=== PATIENT | male | born 1975 | race American Indian/Alaskan Native ===

== ENCOUNTER 2016-11-06 19:56 | Inpatient (IN) | payer MEDICAID, OTHER ==
--- NOTE | 2016-11-06 20:24 | C.PDOC ---
History Of Present Illness 41 year old male who presents to the ER with a complaint of right lower back pain for the past few days. Patient admits to ETOH intake tonight; denies dysuria, hematuria, or incontinence. Chief Complaint (Nursing): Substance Abuse History Per: Patient History/Exam Limitations: no limitations Onset/Duration Of Symptoms: Days Current Symptoms Are (Timing): Still Present Suicide/Self Injury Attempted (Context): None Modifying Factor(s): Alcohol Associated Symptoms: denies: Depression, Suicidal Thoughts, Suicidal Plan Recent travel outside of the [place]: No Past Medical History Reviewed: Historical Data, Nursing Documentation, Vital Signs Vital Signs: Last Vital Signs Temp 98 F 11/06/16 20:03 Pulse 104 H 11/06/16 20:03 Resp 20 11/06/16 20:03 BP 132/87 11/06/16 20:03 Pulse Ox 100 11/06/16 20:28 - Medical History PMH: Depression Surgical History: No Surg Hx Family History: States: Unknown Family Hx - Social History Hx Alcohol Use: Yes Hx Substance Use: No - Immunization History Hx Tetanus Toxoid Vaccination: No Hx Influenza Vaccination: Yes Hx Pneumococcal Vaccination: No Review Of Systems Constitutional: Negative for: Fever, Chills Genitourinary: Negative for: Dysuria, Incontinence, Hematuria Musculoskeletal: Positive for: Back Pain Neurological: Negative for: Weakness, Numbness Physical Exam - Physical Exam Appears: Non-toxic, No Acute Distress, Other (ETOH on breath, Alert, Conscious) Skin: Normal Color, Warm, Dry Head: Atraumatic, Normacephalic Oral Mucosa: Moist Chest: Symmetrical, No Tenderness Cardiovascular: Rhythm Regular, No Murmur Respiratory: Normal Breath Sounds, No Rales, No Rhonchi, No Wheezing Gastrointestinal/Abdominal: Soft, No Tenderness Back: CVA Tenderness (Mild right), No Vertebral Tenderness Neurological/Psych: Oriented x3, Normal Speech, Normal Cognition ED Course And Treatment - Laboratory Results Result Diagrams: 11/06/16 20:31 11/06/16 20:31 O2 Sat by Pulse Oximetry: 100 (Room air) Pulse Ox Interpretation: Normal Progress Note: Blood work and urinalysis ordered. Disposition Discussed With : Edy Garcia Doctor Will See Patient In The: Hospital Counseled Patient/Family Regarding: Diagnosis - Disposition Disposition: HOSPITALIZED Disposition Time: 01:15 Condition: STABLE - POA Present On Arrival: None - Clinical Impression Clinical Impression: Disorder due to alcohol abuse - Scribe Statement The provider has reviewed the documentation as recorded by the Scribnisha Salazar All medical record entries made by the Scribe were at my direction and personally dictated by me. I have reviewed the chart and agree that the record accurately reflects my personal performance of the history, physical exam, medical decision making, and the department course for this patient. I have also personally directed, reviewed, and agree with the discharge instructions and disposition.
[2016-11-06 20:37] LABS: RBC URINE < 1 /hpf (0-3); URINE BILIRUBIN NEGATIVE (NEGATIVE); URINE BLOOD NEGATIVE (NEGATIVE); URINE COLOR Colorless (YELLOW); URINE GLUCOSE (UA) NORMAL (Normal); URINE KETONE NEGATIVE (NEGATIVE); URINE LEUKOCYTE ESTERASE NEG Leu/uL (Negative); URINE PROTEIN NEGATIVE (NEGATIVE); URINE UROBILINOGEN NORMAL mg/dL (0.2-1.0)
[2016-11-06 20:45] LABS: CHLORIDE 101 mmol/L (98-107); POTASSIUM 3.9 mmol/L (3.6-5.2); SODIUM 140 mmol/L (132-148)
[2016-11-06 20:47] LABS: ALB/GLOB RATIO 1.1 (1.0-2.1); AST/SGOT 37 U/L (17-59); BILIRUBIN,TOTAL 0.6 mg/dL (0.2-1.3); CARBON DIOXIDE 22 mmol/L (22-30); GFR AFRICAN-AMERICAN > 60; TOTAL PROTEIN 8.3 g/dL (6.3-8.3)
[2016-11-06 20:48] LABS: ALKALINE PHOSPHATASE 75 U/L (38-126); ALT/SGPT 32 U/L (21-72); BLOOD UREA NITROGEN 11 mg/dL (9-20); GLUCOSE,RANDOM 84 mg/dL (75-110)
[2016-11-06 20:49] LABS: ALCOHOL SERUM 260 mg/dl (0-10)
[2016-11-06 20:50] LABS: BASO % 0.9 % (0.0-2.0); EOS # 0.1 K/uL (0.0-0.7); EOS % 1.1 % (0.0-4.0); HEMATOCRIT 36.6 % (35.0-51.0); LYMPH # 1.6 K/uL (1.0-4.3); LYMPH % 33.4 % (20.0-40.0); MEAN CELL VOLUME 93.2 fL (80.0-94.0); MEAN CORPUSCULAR HEMOGLOBIN 31.6 pg (27.0-31.0); MEAN CORPUSCULAR HGB CONC 33.8 g/dL (33.0-37.0); MEAN PLATELET VOLUME 7.4 fL (7.2-11.7); MONO # 0.6 K/uL (0.0-0.8); MONO % 11.3 % (0.0-10.0); RED CELL DISTRIBUTION WIDTH 13.6 % (11.5-14.5); WHITE BLOOD COUNT 4.9 K/uL (4.8-10.8)
[2016-11-07] MEDS ORDERED: Aluminum Hydroxide/Magnesium Hydroxide Susp (30 mL) PO PRN (06:38)
--- NOTE | 2016-11-07 10:14 | PCM.PSYCH ---
Initial Psychiatric Evaluation - Initial Psychiatric Evaluation Type of Admission: Voluntary Legal Status: Capacity Current Medications: Active Medications Generic Name Dose Route Start Last Admin Trade Name Freq PRN Reason Stop Dose Admin Al Hydrox/Mg Hydrox/Simethicone 30 ml 11/07/16 06:38 Maalox 30 Ml PO TID PRN Indigestion / Heartburn Chlordiazepoxide 25 mg 11/07/16 06:38 Librium PO Q4H PRN Alcohol Withdrawal Chlordiazepoxide 25 mg 11/07/16 12:00 Librium PO 11/11/16 11:59 Q6 LAST Taper Clonidine HCl 0.1 mg 11/07/16 06:38 Catapres PO Q4H PRN Symptoms of alcohol withdrawl Hydroxyzine HCl 25 mg 11/07/16 06:38 Atarax PO Q6 PRN Anxiety Ibuprofen 600 mg 11/07/16 06:48 Motrin Tab PO Q6 PRN Pain, moderate (4-7) Loperamide HCl 2 mg 11/07/16 06:38 Imodium PO Q8 PRN Diarrhea Ondansetron HCl 4 mg 11/07/16 06:38 Zofran Tab PO Q8 PRN Nausea/Vomiting Trazodone HCl 50 mg 11/07/16 06:38 Desyrel PO HS PRN Insomnia Past Psychiatric History - Past Psychiatric History Previous Treatment History: None Pertinent Medical Hx (Current Medical&Sleep Prob, Allergies): Allergies Allergy/AdvReac Type Severity Reaction Status Date / Time No Known Allergies Allergy Verified 11/06/16 20:06 No Known Home Med [No Known Home Med] 11/08/14 Review of Systems - Review of Systems All systems: reviewed and no additional remarkable complaints except - Psychiatric Psychiatric: Anxiety, Irritability Mental Status Examination - Personal Presentation Personal Presentation: Looks stated age - Affect Affect: Constricted - Motor Activity Motor Activity: Calm - Reliability in Providing Information Reliability in Providing Information: Good - Speech Speech: Organized - Mood Mood: Anxious - Formal Thought Process Formal Thought Process: No Impairment - Cognitive Functions Orientation: Person, Place, Situation, Time Sensorium: Alert Attention/Concentration: Attentive Abstract Thinking: [place] Estimate of Intelligence: Below average Judgement: Imparied, as evidence by: Poor judgement, Imparied, as evidence by: Lack of insight into illness - Risk Risk: Withdrawal, Diminished functioning - Strength & Assets Inventory Strength & Assets Inventory: Family support
[2016-11-07] MEDS: Multiple Vitamins Tab PO SCH (14:57)
--- NOTE | 2016-11-07 16:45 | PCM.PSYCH ---
Initial Psychiatric Evaluation - Initial Psychiatric Evaluation Type of Admission: Voluntary Legal Status: Capacity Chief Complaint (in patient's own words): "I need to stop drinking." History of Present Illness and Precipitating Events: A 41 y/o male presents to the hospital with willingness to get help in alcohol detox. The patient lives with his family "on and off." He is currently unemployed and receiving support from his family, but he used to work in construction in the past. Patient reports of long history of drinking. As per patient, he drinks about 2 pints of liquor and 6-7, 24oz cans of beer daily. The maximum amount of alcohol he drank was 1L of liquor (2-4 pints) and 1 case containing 24 cans of beer. Last drink he had was 2 days ago at 5PM, where he drank 2 cans of 24 oz beer. He reports withdrawal symptoms including anxiety, irritability, headaches, and sweating, however denies any shakes and any seizures. Patient denies homicidal ideation and suicidal ideation, and denies auditory or visual hallucinations. He denies any other substance abuse. Longest period of sobriety: less than one month Past medical history: denies NKDA Past psychiatric history: Patient was in detox at [facility] () 2 weeks ago, but admits to having relpased. He denies any past history of inpatient psychiatric hospitalizations and denies any history of follow-up with any psychiatrist in the past. Patient denies suicidal ideation and homicidal ideation. Patient denies any history of auditory or visual hallucinations or any psychotic symptoms. Current Medications: Active Medications Generic Name Dose Route Start Last Admin Trade Name Freq PRN Reason Stop Dose Admin Al Hydrox/Mg Hydrox/Simethicone 30 ml 11/07/16 06:38 Maalox 30 Ml PO TID PRN Indigestion / Heartburn Chlordiazepoxide 25 mg 11/07/16 06:38 Librium PO Q4H PRN Alcohol Withdrawal Chlordiazepoxide 25 mg 11/07/16 12:00 11/07/16 14:57 Librium PO 11/11/16 11:59 25 mg Q6 LAST Administration Taper Clonidine HCl 0.1 mg 11/07/16 06:38 Catapres PO Q4H PRN Symptoms of alcohol withdrawl Folic Acid 1 mg 11/07/16 10:15 11/07/16 14:57 Folic Acid PO 1 mg DAILY LAST Administration Hydroxyzine HCl 25 mg 11/07/16 06:38 Atarax PO Q6 PRN Anxiety Ibuprofen 600 mg 11/07/16 06:48 Motrin Tab PO Q6 PRN Pain, moderate (4-7) Loperamide HCl 2 mg 11/07/16 06:38 Imodium PO Q8 PRN Diarrhea Multivitamins 1 tab 11/07/16 10:15 11/07/16 14:57 Hexavitamin PO 1 tab DAILY LAST Administration Ondansetron HCl 4 mg 11/07/16 06:38 Zofran Tab PO Q8 PRN Nausea/Vomiting Thiamine HCl 100 mg 11/07/16 10:15 11/07/16 14:56 Vitamin B1 Tab PO 100 mg DAILY LAST Administration Trazodone HCl 50 mg 11/07/16 06:38 Desyrel PO HS PRN Insomnia Past Psychiatric History - Past Psychiatric History Previous Treatment History: None Pertinent Medical Hx (Current Medical&Sleep Prob, Allergies): Allergies Allergy/AdvReac Type Severity Reaction Status Date / Time No Known Allergies Allergy Verified 11/06/16 20:06 No Known Home Med [No Known Home Med] 11/08/14 Review of Systems - Review of Systems All systems: reviewed and no additional remarkable complaints except - Psychiatric Psychiatric: Anxiety, Irritability. absent: Suicidal Ideation Mental Status Examination - Personal Presentation Personal Presentation: Looks stated age - Affect Affect: Constricted - Motor Activity Motor Activity: Calm - Reliability in Providing Information Reliability in Providing Information: Fair - Speech Speech: Organized - Mood Mood: Anxious - Formal Thought Process Formal Thought Process: No Impairment - Obsessions/Compulsions Obsessions: No Compulsions: No - Cognitive Functions Orientation: Person, Place, Situation, Time Sensorium: Alert Attention/Concentration: Attentive Abstract Thinking: Benedict Estimate of Intelligence: Below average Judgement: Imparied, as evidence by: Poor judgement, Intact, as evidence by: Insight regarding need for hospitalization - Risk Risk: Withdrawal, Diminished functioning - Strength & Assets Inventory Strength & Assets Inventory: Family support DSM 5 DX - DSM 5 DSM 5 Diagnosis: Alcohol use disorder severe Alcohol withdrawal - Recommended/Plan of Treatment Treatment Recommendations and Plan of Treatment: Alcohol use disorder severe CBT Psychoeducation Supportive therapy, individual therapy Use MT for abstinence Alcohol withdrawal CBT Psychoeducation Supportive therapy, individual therapy Librium taper when scoring Librium PRN FA/Thiamine/MVI - Smoking Cessation Smoking Cessation Initiated: No
[2016-11-08] MEDS: Multiple Vitamins Tab PO SCH (09:57)
--- NOTE | 2016-11-08 12:17 | PCM.PYCHPN ---
Psychiatric Progress Note - Psychiatric Progress Note Patient seen today, length of contact: 16 min Patient Chief Complaint: "Doing better" Problems Identified/Issues Discussed: The pt is seen, chart reviewed, case discussed with staff. The pt is compliant with medications and reports no side-effects. Symptoms are improving but needs more time to stabilize. After care discussed, support and psychoeducation given. Medication Change: Yes (detox changes daily) Medical Record Reviewed: Yes Mental Status Examination - Cognitive Function Orientation: Person, Place, Situation, Time Memory: Intact Attention: WNL Concentration: WNL Association: WNL Fund of Knowledge: WNL - Mood Mood: Anxious - Affect Affect: Constricted - Speech Speech: Appropriate - Formal Thought Process Formal Thought Process: No Impairment - Suicidal Ideation Suicidal Ideation: No - Homicidal Ideation Homicidal Ideation: No Goal/Treatment Plan - Goal/Treatment Plan Need for Continued Stay: Discharge may exacerbated symptoms, Severe functional impairment Progress Toward Problem(s) and Goals/Treatment Plan: Librium detox Gabapentin for augmentation As needed meds and vitamins Attend groups and activities [place] for abstinence and CBT for relapse prevention Support and psychoeducation Consider and encourage MAT Refer to after care Estimated Date of D/C: 11/10/16
--- NOTE | 2016-11-08 20:22 | PCM.BM ---
<Elzbieta Peguero - Last Filed: 11/08/16 20:20> Treatment Plan Problems - Problems identified on initial assessmt potiential for autonomic instability related to alcohol with drawal Date Initiated: 11/08/16 Time Initiated: 20:21 Assessment reference: NA Status: Active Treatment assets and liabiliti Patient Assests: adapts well, cooperative, motivated, ADL independent Patient Liabilities: substance abuse - Milieu Protocol Maintain good personal hygiene: daily Encourage regular showers, daily Remind patient to perform daily oral care, daily Assist patient to perform ADL's Maintain personal safety: every shift Educate patient to report safety concerns to staff, every shift Monitor environment for contraband/sharps Medication safety: Monitor for expected outcome, potential side effects: every shift, Assess barriers to learning: every shift, Assess readiness for medication education: every shift Milieu Narrative: Librium detox Gabapentin for augmentation As needed meds and vitamins Attend groups and activities [place] for abstinence and CBT for relapse prevention Support and psychoeducation Consider and encourage MAT Refer to after care Discharge/Continuing Care - Treatment Team Participation Patient/Family/SO Statement: Librium detox Gabapentin for augmentation As needed meds and vitamins Attend groups and activities [place] for abstinence and CBT for relapse prevention Support and psychoeducation Consider and encourage MAT Refer to after care <Santosh Katz - Last Filed: 11/09/16 10:19> - Diagnosis (1) Alcohol dependence Status: Acute Interventions: 11/09/16 10:19 * Assess 7x/week regarding severity of withdrawal * Educate regarding risks, benefits, side effects and alternatives of medications * Use Motivational Interviewing for abstinence * Use CBT for relapse prevention * Medication management for withdrawal symptoms * Encourage medication assisted treatment * <Cheryl De La Paz - Last Filed: 11/09/16 18:02> Family Contact Family involvement: Family/SO is involved Family contact: Patient agrees to contact, Telephone contact initiated by staff - Goals for Treatment Patient goals for treatment: Transition from detox to [facility] in [place]. Discharge/Continuing Care - Education Needs Education Needs: Patient Medication, Patient Diagnosis/Disease Process, Patient Coping Skills, Patient Anger Management skills, Patient Placement options, Patient Community resources - Discharge Discharge Criteria: No longer exhibiting s/s of withdrawal, Reduction of target symptoms Discharge to:: Substance Abuse Rehab
[2016-11-09] MEDS: Multiple Vitamins Tab PO SCH (09:54)
--- NOTE | 2016-11-09 12:28 | PCM.PYCHPN ---
Psychiatric Progress Note - Psychiatric Progress Note Patient seen today, length of contact: 15 min Patient Chief Complaint: "no complaints" Problems Identified/Issues Discussed: The pt is seen, chart reviewed, case discussed with staff. Support given, CBT and NH used briefly No new symptoms reported, improving slowly and needs more time No SEs from medications, risks discussed. After care discussed - accepted by [facility] in [place] and to start tomorrow He doesn't have insurance or money to get his meds but he says he will be ok w/ o them Medication Change: Yes (detox changes daily) Medical Record Reviewed: Yes Mental Status Examination - Cognitive Function Orientation: Person, Place, Situation, Time Memory: Intact Attention: WNL Concentration: WNL Association: WN Fund of Knowledge: WNL - Mood Mood: Anxious - Affect Affect: Constricted - Speech Speech: Appropriate - Formal Thought Process Formal Thought Process: No Impairment - Suicidal Ideation Suicidal Ideation: No - Homicidal Ideation Homicidal Ideation: No Goal/Treatment Plan - Goal/Treatment Plan Need for Continued Stay: Discharge may exacerbated symptoms, Severe functional impairment Progress Toward Problem(s) and Goals/Treatment Plan: Librium detox Gabapentin for augmentation As needed meds and vitamins Attend groups and activities [place] for abstinence and CBT for relapse prevention Support and psychoeducation Consider and encourage MAT after [facility] Estimated Date of D/C: 11/10/16
--- NOTE | 2016-11-10 08:35 | PCM.PYCHDC ---
Mental Status Examination - Mental Status Examination Orientation: Person, Place, Situation, Time Memory: Intact Mood: Anxious Affect: Constricted Speech: Appropriate Attention: WNL Association: WNL Fund of Knowledge: WNL Formal Thought Process: No Impairment Suicidal Ideation: No Current Homicidal Ideation?: No Discharge Summary - Discharge Note Reason for Hospitalization: Alcohol detox Consultations:: List each consultation separately and include: 1. Reason for request. 2. Findings. 3. Follow-up Summary of Hospital Course include:: 1. Description of specific treatment plan utilized for patients during their course of treatmen. 2. Summarize the time- course for resolution of acute symptoms and/or regressed behaviors. 3. Describe issues identified and worked on during hospitalization. 4. Describe medication utilized. 5. Describe medical problems identified and treated. 6. Reassessment of suicide risk Summary of Hospital Course: The pt was admitted and started on treatment with psychotherapy, support, psychoeducation and medications. AR and CBT used. The pt attended groups and activities, as well as milieu therapy. All the risks and benefits of medications are discussed and the patient understood and agreed. After care discussed with the patient. He went to [facility] in [place] He did not want meds due to no $ or insurance. The patient improved with the treatment provided and discharged as planned. - Final Diagnosis (DSM 5) Condition upon Discharge: STABLE DSM 5: Alcohol use disorder severe Alcohol withdrawal Disposition: HOME/ ROUTINE Follow-up Treatment Plan: No meds Follow after care plan as discussed above. Use relapse prevention skills. Return to ER or call 911 if suicidal, homicidal or symptoms relapse. Stay away from stress, alcohol and drugs. Use relaxation techniques. See primary doctor once a year and get labs. Consider MAT
[2016-11-10 08:43] VITALS: BP 121/76; PULSE 101; RESP 20; TEMP 98.4; O2SAT 99
[2016-11-10] MEDS: Multiple Vitamins Tab PO SCH (09:41)
== END 2016-11-10 10:15 | disposition home or self-care (01) | DRG 751 ==
LOC: C.ER 19:56 → C.9OBSV 11-07 00:21 → OBSVTOIN 11-07 01:14 → C.7D 11-07 01:14
PROVIDERS: ADMIT Emergency Medicine; ATTEND Psychiatry & Neurology Psychiatry
PROC: HZ2ZZZZ Detoxification Services for Substance Abuse Treatment (ICD-10-PCS; principal; 2016-11-07)
PROC: HZ42ZZZ Group Counseling for Substance Abuse Treatment, Cognitive-Behavioral (ICD-10-PCS; 2016-11-07)
PROC: HZ52ZZZ Individual Psychotherapy for Substance Abuse Treatment, Cognitive-Behavioral (ICD-10-PCS; 2016-11-07)
PROC: HZ59ZZZ Individual Psychotherapy for Substance Abuse Treatment, Supportive (ICD-10-PCS; 2016-11-07)
PROC: HZ56ZZZ Individual Psychotherapy for Substance Abuse Treatment, Psychoeducation (ICD-10-PCS; 2016-11-07)
PROC: HZ46ZZZ Group Counseling for Substance Abuse Treatment, Psychoeducation (ICD-10-PCS; 2016-11-07)
DX: F10.230 Alcohol dependence with withdrawal, uncomplicated (principal); F41.9 Anxiety disorder, unspecified; Y90.8 Blood alcohol level of 240 mg/100 ml or more; G47.00 Insomnia, unspecified

== ENCOUNTER 2018-01-05 15:26 | Emergency (ER) | payer MEDICAID, OTHER ==
[2018-01-05 15:41] VITALS: BMI 31.0
[2018-01-05 15:50] VITALS: BP 144/90; PULSE 108; RESP 18; TEMP 98.6; O2SAT 98
--- NOTE | 2018-01-05 16:57 | RAD ---
PROCEDURE: Left ankle radiographs Left foot radiographs HISTORY: fall COMPARISON: None available FINDINGS: BONES: No acute displaced fracture. Degenerative changes. Calcaneal enthesophyte/heel spur. Well corticated ossific density at the level of the talar navicular joint space likely related to degenerative change or remote trauma. JOINTS: No dislocation. SOFT TISSUES: Soft tissue swelling. No evidence of radiopaque foreign body. OTHER FINDINGS: None. IMPRESSION: Soft tissue swelling. No acute displaced fracture, dislocation, or significant joint effusion identified.If symptoms persist or if there is clinical concern, x-ray follow-up in 7-10 days should be considered. Degenerative changes.
--- NOTE | 2018-01-05 17:20 | C.PDOC ---
History Of Present Illness 42 y/o male presents to the ED for evaluation of left ankle injury. Patient states that 3 days ago he was going down stairs, missed a step, and twisted the left ankle. Now complains of worsening pain. Otherwise patient denies any numbness, tingling, focal weakness, or other complaints. Time Seen by Provider: 01/05/18 15:46 Chief Complaint (Nursing): Lower Extremity Problem/Injury History Per: Patient History/Exam Limitations: no limitations Onset/Duration Of Symptoms: Days Current Symptoms Are (Timing): Still Present Past Medical History Reviewed: Historical Data, Nursing Documentation, Vital Signs Vital Signs: Last Vital Signs Temp 98.6 F 01/05/18 15:41 Pulse 108 H 01/05/18 15:41 Resp 18 01/05/18 15:41 BP 144/90 01/05/18 15:41 Pulse Ox 98 01/05/18 15:41 - Medical History PMH: Depression Denies: Diabetes, Hepatitis, HIV, HTN, Seizures, Sexually Transmitted Disease - [facility] Procedures DETOXIFICATION SERVICES FOR SUBSTANCE ABUSE TREATMENT (11/07/16) GROUP DIRECTOR INTEGRATED FOR SUBSTANCE ABUSE TREATMENT, PSYCHOEDUCATION (11/07/16) GROUP DIRECTOR INTEGRATED FOR SUBSTANCE ABUSE, COGNITIVE BEHAVIORAL (11/07/16) INDIV PSYCHOTHERAPY FOR SUBSTANCE ABUSE TREATMENT, SUPPORT (11/07/16) INDIV PSYCHOTHERAPY FOR SUBSTANCE ABUSE, COGNITIV BEHAVIORAL (11/07/16) INDIV PSYCHOTHERAPY FOR SUBSTANCE ABUSE, PSYCHOEDUCATION (11/07/16) Family History: States: Unknown Family Hx - Social History Hx Alcohol Use: Yes Hx Substance Use: No - Immunization History Hx Tetanus Toxoid Vaccination: No Hx Influenza Vaccination: No Hx Pneumococcal Vaccination: No Review Of Systems Except As Marked, All Systems Reviewed And Found Negative. Musculoskeletal: Positive for: Foot Pain Skin: Negative for: Lesions, Bruising Neurological: Negative for: Weakness, Numbness, Incoordination Physical Exam - Physical Exam Appears: Well, Non-toxic, No Acute Distress Skin: Normal Color, Warm, Dry Head: Atraumatic, Normacephalic Eye(s): bilateral: Normal Inspection Extremity: Tenderness (to the lateral posterior area of left ankle and heel), No Calf Tenderness, Capillary Refill (less than 2 sec), No Deformity, No Swelling (or edema), Other (Achilles non-tender) Pulses: Left Dorsalis Pedis: Normal, Right Dorsalis Pedis: Normal Neurological/Psych: Oriented x3, Normal Speech, Normal Motor, Normal Sensation ED Course And Treatment O2 Sat by Pulse Oximetry: 98 (RA) Pulse Ox Interpretation: Normal - Other Rad Left ankle x-ray X-Ray: Read By Radiologist Interpretation: FINDINGS: BONES: No acute displaced fracture. Degenerative changes. Calcaneal enthesophyte/heel spur. Well corticated ossific density at the level of the talar navicular joint space likely related to degenerative change or remote trauma. JOINTS: No dislocation. SOFT TISSUES: Soft tissue swelling. No evidence of radiopaque foreign body. OTHER FINDINGS: None. IMPRESSION: Soft tissue swelling. No acute displaced fracture, dislocation, or significant joint effusion identified.If symptoms persist or if there is clinical concern, x-ray follow-up in 7-10 days should be considered. Degenerative changes. Left foot x-ray X-Ray: Read By Radiologist Interpretation: FINDINGS: BONES: No acute displaced fracture. Degenerative changes. Calcaneal enthesophyte/heel spur. Well corticated ossific density at the level of the talar navicular joint space likely related to degenerative change or remote trauma. JOINTS: No dislocation. SOFT TISSUES: Soft tissue swelling. No evidence of radiopaque foreign body. OTHER FINDINGS: None. IMPRESSION: Soft tissue swelling. No acute displaced fracture, dislocation, or significant joint effusion identified.If symptoms persist or if there is clinical concern, x-ray follow-up in 7-10 days should be considered. Degenerative changes. Progress Note: X-rays taken of left ankle and foot, read as negative. Informed patient of negative results. Patient provided with air cast, crutches, and advised to follow up with ortho. Disposition - Disposition Referrals: Durga Green MD [Staff Provider] - Disposition: HOME/ ROUTINE Disposition Time: 17:17 Condition: STABLE Additional Instructions: Follow up with PMD and Orthopedist within 1-2 days. Return to ED if feel worse. Prescriptions: Ibuprofen [Motrin Tab] 600 mg PO Q8 #30 tab Instructions: Ankle Sprain (DC) Forms: [employer] (Turkmen), Work Excuse - Clinical Impression Clinical Impression: Ankle sprain - PA / INCIDENT RESPONSE COORDINATOR / Resident Statement MD/DO has reviewed & agrees with the documentation as recorded. - Scribe Statement The provider has reviewed the documentation as recorded by the Scribe (Christine Aguiar) All medical record entries made by the Scribe were at my direction and personally dictated by me. I have reviewed the chart and agree that the record accurately reflects my personal performance of the history, physical exam, medical decision making, and the department course for this patient. I have also personally directed, reviewed, and agree with the discharge instructions and disposition.
== END 2018-01-05 17:36 | disposition home or self-care (01) ==
LOC: C.ER 15:26
DX: S93.402A Sprain of unspecified ligament of left ankle, initial encounter (principal); X50.1XXA Overexertion from prolonged static or awkward postures, initial encounter